=== PATIENT | male | born 1985 | race Caucasian/White ===

== ENCOUNTER 2022-10-01 14:13 | Emergency (ER) | payer SELFPAY ==
[~2022-10-01] VITALS: Ht 177 cm; Wt 77.0 kg
[2022-10-01 15:28] LABS: BASOPHILS # (AUTO) 0.1 10^3/uL (0.0-0.1); BASOPHILS % (AUTO) 1 % (0-10); EOSINOPHILS # (AUTO) 0.3 10^3/uL (0.0-0.3); EOSINOPHILS % (AUTO) 4 % (0-10); HEMATOCRIT 42 % (40-54); HEMOGLOBIN 14.1 g/dL (13.3-17.7); LYMPHOCYTES % (AUTO) 22 % (12-44); MEAN CORPUSCULAR HEMOGLOBIN 30 pg (25-34); MEAN CORPUSCULAR HGB CONC 34 g/dL (32-36); MEAN CORPUSCULAR VOLUME 88 fL (80-99); MEAN PLATELET VOLUME 8.9 fL (9.0-12.2); MONOCYTES # (AUTO) 0.6 10^3/uL (0.0-1.0); MONOCYTES % (AUTO) 6 % (0-12); NEUTROPHILS % (AUTO) 67 % (42-75); PLATELET COUNT 345 10^3/uL (130-400)
[2022-10-01] MEDS ORDERED: fentaNYL INJ 100 MCG/2 ML AMP IVP ONE (15:30)
[2022-10-01] MEDS ORDERED: NS IV 1000 ML 1,000 ML IV SCH (15:30)
[2022-10-01 15:32] LABS: BILIRUBIN,URINE NEGATIVE (NEGATIVE); CLARITY,URINE CLEAR; COLOR,URINE YELLOW; GLUCOSE, URINE (UA) NEGATIVE (NEGATIVE); KETONES,URINE NEGATIVE (NEGATIVE); LEUKOCYTE ESTERASE ,URINE NEGATIVE (NEGATIVE); NITRITE,URINE NEGATIVE (NEGATIVE); PH,URINE 5.5 (5-9); PROTEIN,URINE 1+ (NEGATIVE)
--- NOTE | 2022-10-01 15:32 | ED Abdominal Pain ---
General Chief Complaint: Abdominal/GI Problems Stated Complaint: LT SIDE PAIN | GROIN PAIN Nursing Triage Note: LEFT FLANK PAIN STARTING TODAY. Source of Information: Patient Exam Limitations: No Limitations History of Present Illness Date Seen by Provider: Oct 01, 2022 Time Seen by Provider: 15:15 Initial Comments Patient is a 37-year-old male negative past medical history who presents to the emergency room with a chief complaint of bilateral flank pain and back pain. Patient states he has had the symptoms off and on for a week worsening today. He endorses fever to 99.8. He is not nauseous, no vomiting. No diarrhea, black or bloody stools. He states that he is having trouble emptying his bladder. He states he has a pressure sensation when he urinates. No penile discharge, no concern for sexually transmitted infection. His unexpectedly about a month ago he recently moved to [address] to be near family. He has had prior appendectomy. He relates that he was diagnosed a couple of months ago with gallstones and was scheduled to have further work-up and surgery but when his he put that on the back burner. Denies URI symptoms. Movement makes the pain worse, eating does not make his abdominal and back pain worse. He is not not a drinker, not a smoker. He has had Tylenol and ibuprofen today for pain. All other review of systems reviewed and negative except as stated Timing/Duration: 1-2 Days Severity/Quality: Moderate (7-8) Location: Flank Radiation: Back Activities at Onset: Other (working) Associated Symptoms: Fatigue Allergies and Home Medications Allergies Coded Allergies: No Known Drug Allergies (Unverified , 10/01/22) Patient Home Medication List Home Medication List Reviewed: Yes Review of Systems Review of Systems Constitutional: see HPI EENTM: No Symptoms Reported Respiratory: No Symptoms Reported Gastrointestinal: Abdominal Pain, Other (flank pain and back pain) Genitourinary: Urgency Musculoskeletal: back pain Skin: no symptoms reported Psychiatric/Neurological: Emotional Problems ( recently - unexpected) All Other Systems Reviewed Negative Unless Noted: Yes Past Gzydcpm-Xtitcj-Hzhvzk Hx Patient Social History Tobacco Use?: No Substance use?: No Alcohol Use?: No Physical Exam Vital Signs Vital Signs - First Documented 10/01/22 14:20 Temp 37.3 Pulse 88 Resp 16 B/P (MAP) 131/82 (98) Pulse Ox 98 O2 Delivery Room Air Capillary Refill : Less Than 3 Seconds Height/Weight/BMI Height: '" Weight: lbs. oz. kg; 24.00 BMI Method: General Appearance: WD/WN, no apparent distress HEENT: PERRL/EOMI Respiratory: lungs clear, normal breath sounds, no respiratory distress, no accessory muscle use Cardiovascular: regular rate, rhythm Peripheral Pulses: 2+ Radial Pulses (R), 2+ Radial Pulses (L) Gastrointestinal: soft, tenderness (epigastrum, RUQ, left flank) Back: normal inspection, no CVA tenderness Neurologic/Psychiatric: alert, normal mood/affect, oriented x 3 Skin: normal color, warm/dry Progress/Results/Core Measures Results/Orders Lab Results Laboratory Tests Test 10/01/22 15:14 Range/Units White Blood Count 9.0 4.3-11.0 10^3/uL Red Blood Count 4.76 4.30-5.52 10^6/uL Hemoglobin 14.1 13.3-17.7 g/dL Hematocrit 42 40-54 % Mean Corpuscular Volume 88 80-99 fL Mean Corpuscular Hemoglobin 30 25-34 pg Mean Corpuscular Hemoglobin Concent 34 32-36 g/dL Red Cell Distribution Width 12.9 10.0-14.5 % Platelet Count 345 130-400 10^3/uL Mean Platelet Volume 8.9 L 9.0-12.2 fL Immature Granulocyte % (Auto) 0 % Neutrophils (%) (Auto) 67 42-75 % Lymphocytes (%) (Auto) 22 12-44 % Monocytes (%) (Auto) 6 0-12 % Eosinophils (%) (Auto) 4 0-10 % Basophils (%) (Auto) 1 0-10 % Neutrophils # (Auto) 6.0 1.8-7.8 10^3/uL Lymphocytes # (Auto) 2.0 1.0-4.0 10^3/uL Monocytes # (Auto) 0.6 0.0-1.0 10^3/uL Eosinophils # (Auto) 0.3 0.0-0.3 10^3/uL Basophils # (Auto) 0.1 0.0-0.1 10^3/uL Immature Granulocyte # (Auto) 0.0 0.0-0.1 10^3/uL Urine Color YELLOW Urine Clarity CLEAR Urine pH 5.5 5-9 Urine Specific [place] >=1.030 1.016-1.022 Urine Protein 1+ H NEGATIVE Urine Glucose (UA) NEGATIVE NEGATIVE Urine Ketones NEGATIVE NEGATIVE Urine Nitrite NEGATIVE NEGATIVE Urine Bilirubin NEGATIVE NEGATIVE Urine Urobilinogen 0.2 < = 1.0 MG/DL Urine Leukocyte Esterase NEGATIVE NEGATIVE Urine RBC (Auto) 2+ H NEGATIVE Urine RBC 25-50 H /HPF Urine WBC NONE /HPF Urine Squamous Epithelial Cells NONE /HPF Urine Renal Epithelial Cells NONE /HPF Urine Crystals NONE /LPF Urine Bacteria NEGATIVE /HPF Urine Casts NONE /LPF Urine Mucus SMALL H /LPF Urine Other LG SPERM H /HPF Urine Culture Indicated NO Sodium Level 136 135-145 MMOL/L Potassium Level 4.1 3.6-5.0 MMOL/L Chloride Level 102 98-107 MMOL/L Carbon Dioxide Level 25 21-32 MMOL/L Anion Gap 9 5-14 MMOL/L Blood Urea Nitrogen 12 7-18 MG/DL Creatinine 0.88 0.60-1.30 MG/DL Estimat Glomerular Filtration Rate 113 BUN/Creatinine Ratio 14 Glucose Level 101 70-105 MG/DL Calcium Level 9.5 8.5-10.1 MG/DL Corrected Calcium 9.3 8.5-10.1 MG/DL Total Bilirubin 0.2 0.1-1.0 MG/DL Aspartate Amino Transf (AST/SGOT) 19 5-34 U/L Alanine Aminotransferase (ALT/SGPT) 18 0-55 U/L Alkaline Phosphatase 86 40-136 U/L Total Protein 7.7 6.4-8.2 GM/DL Albumin 4.3 3.2-4.5 GM/DL Lipase 12 8-78 U/L My Orders Orders - GABBI CORTES MD Lipase (10/01/22 15:26) Fentanyl Inj (Sublimaze Injection) (10/01/22 15:30) Ns Iv 1000 Ml (Sodium Chloride 0.9%) (10/01/22 15:30) Ketorolac Injection (Toradol Injection) (10/01/22 16:15) Normal Saline Bolus 1,000ml (10/01/22 16:10) Medications Given in ED Current Medications Medications Dose Ordered Sig/Aminata Route Start Time Stop Time Status Last Admin Dose Admin Fentanyl Citrate 25 mcg ONCE ONCE IVP 10/01/22 15:30 10/01/22 15:31 DC 10/01/22 15:34 25 MCG Vital Signs/I&O 10/01/22 14:20 Temp 37.3 Pulse 88 Resp 16 B/P (MAP) 131/82 (98) Pulse Ox 98 O2 Delivery Room Air Blood Pressure Mean: 98 Diagnostic Imaging Diagonstic Imaging: CT Comments NAME: JENN BAR REC#: [id number] PT STATUS: REG ER : 1985 PHYSICIAN: IBETH ROME APRN ADMIT DATE: 10/01/22/ER Draft Date of Exam:10/01/22 CT ABD/PELVIS WO(KIDNEY STONE) PROCEDURE: CT urinary tract, rule out kidney stone. TECHNIQUE: Multiple contiguous axial images were obtained through the abdomen and pelvis without the use of intravenous contrast. Auto Exposure Controls were utilized during the CT exam to meet ALARA standards for radiation dose reduction. INDICATION: Left flank pain. COMPARISON: None. FINDINGS: Calcified granulomas in the spleen. Appendectomy. The lung bases are clear. The liver, gallbladder, pancreas, adrenals, kidneys, collecting systems and bladder are negative on this noncontrast exam. No free intraperitoneal air or fluid. No lymphadenopathy. No evidence of bowel obstruction. No acute osseous findings. IMPRESSION: No acute CT findings in the abdomen or pelvis. Specifically, no renal stones or hydronephrosis. Dictated on workstation # [id number] Dict: 10/01/22 1557 Trans: 10/01/22 1606 [id number] [id number] Interpreted by: SHEFALI STANFORD MD Electronically signed by: Departure Impression Primary Impression: Back pain Qualified Codes: M54.50 - Low back pain, unspecified Additional Impression: Microscopic hematuria Disposition: HOME, SELF-CARE Condition: Improved Departure-Patient Inst. Decision time for Depature: 16:11 Referrals: [facility] [place],LOCAL PHYSICIAN (PCP) Primary Care Physician Patient Instructions: Upper Back Pain ED Add. Discharge Instructions: You were found to be moderately dehydrated today. You need to drink more water so that your urine is clear. You were also found to have some microscopic blood in your urine. This can be a normal finding however when you are dehydrated this can also happen. No obvious abnormalities were found in the CAT scan today. Your labs are also all normal. Take dcry-arl-onujyul ibuprofen 3 tablets which is 600 mg with food every 6 hours as needed for pain. If you develop a fever over 101, worsening pain, vomiting or any other emergent, concerning symptoms please come back to the emergency room for reevaluation. Please follow-up with your primary care provider for further evaluation of your gallbladder as well as for the issues you have concern with today GABBI CORTES MD Oct 01, 2022 15:32
[2022-10-01 15:39] LABS: ALBUMIN 4.3 GM/DL (3.2-4.5); POTASSIUM 4.1 MMOL/L (3.6-5.0)
[2022-10-01 15:40] LABS: BACTERIA,URINE NEGATIVE /HPF; CALCIUM 9.5 MG/DL (8.5-10.1); RBC,URINE 25-50 /HPF; URINE OTHER LG SPERM /HPF
[2022-10-01 15:41] LABS: TOTAL PROTEIN 7.7 GM/DL (6.4-8.2)
[2022-10-01 15:43] LABS: BILIRUBIN,TOTAL 0.2 MG/DL (0.1-1.0)
[2022-10-01 15:45] LABS: CREATININE SERUM 0.88 MG/DL (0.60-1.30)
--- NOTE | 2022-10-01 16:07 | Diagnostic Imaging Report ---
PROCEDURE: CT urinary tract, rule out kidney stone. TECHNIQUE: Multiple contiguous axial images were obtained through the abdomen and pelvis without the use of intravenous contrast. Auto Exposure Controls were utilized during the CT exam to meet ALARA standards for radiation dose reduction. INDICATION: Left flank pain. COMPARISON: None. FINDINGS: Calcified granulomas in the spleen. Appendectomy. The lung bases are clear. The liver, gallbladder, pancreas, adrenals, kidneys, collecting systems and bladder are negative on this noncontrast exam. No free intraperitoneal air or fluid. No lymphadenopathy. No evidence of bowel obstruction. No acute osseous findings. IMPRESSION: No acute CT findings in the abdomen or pelvis. Specifically, no renal stones or hydronephrosis. Dictated by: Dictated on workstation # [id number]
[2022-10-01] MEDS ORDERED: NS IV 1000 ML 1,000 ML IV STA (16:10)
[2022-10-01] MEDS ORDERED: KETOROLAC 30 MG/ML VIAL IVP ONE (16:15)
[2022-10-01 16:43] VITALS: BP 106/76
== END 2022-10-01 16:43 | disposition home or self-care (01) ==
LOC: ER 14:18
DX: M54.9 Dorsalgia, unspecified (principal); R31.29 Other microscopic hematuria; Z28.310 Unvaccinated for COVID-19
CPT/HCPCS: 36415; 74176; 80053; 81000; 83690; 85025